=== PATIENT | male | born 1985 | race Caucasian/White ===

== ENCOUNTER 2023-06-19 20:10 | Emergency (ER) | payer OTHER ==
[2023-06-19 20:35] VITALS: TEMP 97.8
--- NOTE | 2023-06-19 20:38 | ED ---
General Adult HPI - General Chief complaint: Upper Respiratory Infection Stated complaint: Cough,vomiting, SOB Time Seen by Provider: 06/19/23 20:20 Source: patient, RN notes reviewed Mode of arrival: ambulatory Limitations: no limitations - History of Present Illness Initial comments: This is a 37-year-old male with history of asthma presents to the ED with chief complaint of cough, fatigue, and fevers over the past week. Patient states that his cough at times is so severe it results in posttussive emesis. Endorses dyspnea on exertion over this time. Patient states that he does not have a thermometer at home but reports feelings of hot/cold flashes. He also states that he has been using his rescue inhaler, albuterol, more frequently during thi s past week. Patient denies any steroid use or inhaled corticosteroid use. States he has been using cold medication. Denies chest pain or pressure, palpitations, abdominal pain. States he has taken multiple at home covid tests which were negative. - Related Data Home Medications Medication Instructions Recorded Confirmed Enalapril [Vasotec] 20 mg PO BID 04/23/14 04/23/14 metFORMIN HCL [Glucophage] 1,000 mg PO BID 04/23/14 04/23/14 Previous Rx's Medication Instructions Recorded Acetaminophen-Codeine 300-30mg 1 each PO Q4H PRN #20 tablet 04/23/14 [Tylenol w/codeine #3] Cyclobenzaprine [Flexeril] 10 mg PO TID #20 tablet 04/23/14 Naproxen [Naprosyn] 500 mg PO Q12HR #24 tab 04/23/14 Benzonatate [Tessalon Perles] 100 mg PO TID PRN #15 capsule 06/19/23 metFORMIN HCL 500 mg PO BID 21 Days #42 tablet 06/19/23 predniSONE 50 mg PO DAILY #5 tab 06/19/23 Allergies Allergy/AdvReac Type Severity Reaction Status Date / Time No Known Allergies Allergy Verified 07/16/21 04:12 Review of Systems ROS Statement: Those systems with pertinent positive or pertinent negative responses have been documented in the HPI. ROS Other: All systems not noted in ROS Statement are negative. Past Medical History Past Medical History: Diabetes Mellitus, Hypertension Additional Past Medical History / Comment(s): back pain, History of Any Multi-Drug Resistant Organisms: None Reported Additional Past Surgical History / Comment(s): skin graft Past Psychological History: Bipolar, Depression Smoking Status: Current every day smoker, Vaper Past Alcohol Use History: None Reported Past Drug Use History: Marijuana General Exam Limitations: no limitations General appearance: alert, in no apparent distress Head exam: Present: atraumatic, normocephalic, normal inspection Eye exam: Present: normal appearance, PERRL, EOMI. Absent: scleral icterus, conjunctival injection, periorbital swelling ENT exam: Present: normal exam, mucous membranes moist Neck exam: Present: normal inspection. Absent: tenderness, meningismus, lymphadenopathy Respiratory exam: Present: wheezes, rales (over the left inferior lung base), decreased breath sounds, prolonged expiratory. Absent: normal lung sounds bilaterally, chest wall tenderness, accessory muscle use Cardiovascular Exam: Present: regular rate, normal rhythm, normal heart sounds. Absent: systolic murmur, diastolic murmur, rubs, gallop, clicks GI/Abdominal exam: Present: soft, normal bowel sounds. Absent: distended, tenderness, guarding, rebound, rigid Extremities exam: Present: normal inspection, full ROM, normal capillary refill. Absent: tenderness, pedal edema, joint swelling, calf tenderness Back exam: Present: normal inspection Neurological exam: Present: alert, oriented X3, CN II-XII intact Psychiatric exam: Present: normal affect, normal mood Skin exam: Present: warm, dry, intact, normal color. Absent: rash Course Vital Signs 06/19/23 06/19/23 06/19/23 20:30 21:07 21:17 Temperature 97.8 F Pulse Rate 93 90 89 Respiratory 18 Rate Blood Pressure 153/96 O2 Sat by Pulse 95 Oximetry Medical Decision Making - Medical Decision Making Was pt. sent in by a medical professional or institution (, PA, PBX INSTALLER, urgent care, hospital, or alf...) When possible be specific @ -No Did you speak to anyone other than the patient for history (EMS, parent, family, police, friend...)? What history was obtained from this source @ -No Did you review nursing and triage notes (agree or disagree)? Why? @ -I reviewed and agree with nursing and triage notes Were old charts reviewed (outside hosp., previous admission, EMS record, old EKG, old radiological studies, urgent care reports/EKG's, alf records)? Report findings @ -No old charts were reviewed Differential Diagnosis (chest pain, altered mental status, abdominal pain women, abdominal pain men, vaginal bleeding, weakness, fever, dyspnea, syncope, headache, dizziness, GI bleed, back pain, seizure, CVA, palpatations, mental health, musculoskeletal)? @ -COVID 19, RSV, influenza, pneumonia, acute bronchitis, URI, this list is not all inclusive EKG interpreted by me (3pts min.). @ -[None X-rays interpreted by me (1pt min.). @ -Chest x-ray with no acute cardiopulmonary process CT interpreted by me (1pt min.). @ -None done U/S interpreted by me (1pt. min.). @ -None done What testing was considered but not performed or refused? (CT, X-rays, U/S, labs)? Why? @ -None What meds were considered but not given or refused? Why? @ -None Did you discuss the management of the patient with other professionals (professionals i.e. , PA, PBX INSTALLER, lab, RT, psych nurse, hospital social worker, conche operator, teacher, interface control officer, caseworker intake)? Give summary @ -No Was smoking cessation discussed for >3mins.? @ -No Was critical care preformed (if so, how long)? @ -No Were there social determinants of health that impacted care today? How? (Homelessness, low income, unemployed, alcoholism, drug addiction, transportation, low edu. Level, literacy, decrease access to med. care, senior care, rehab)? @ -No Was there de-escalation of care discussed even if they declined (Discuss DNR or withdrawal of care, Hospice)? DNR status @ -No What co-morbidities impacted this encounter? (DM, HTN, Smoking, COPD, CAD, Cancer, CVA, ARF, Chemo, Hep., AIDS, mental health diagnosis, sleep apnea, morbid obesity)? @ -smoking, DM Was patient admitted / discharged? Hospital course, mention meds given and route, prescriptions, significant lab abnormalities, going to OR and other pertinent info. @ -37-year-old male with complaint of cough associated with posttussive emesis, fatigue, body aches. On physical exam patient was noted to have decreased bilateral lung sounds with expiratory wheezing and rales. Cepheid ordered ad dition to chest x-ray. Patient given shot of Solu-Medrol in addition to breathing treatment. On reevaluation patient states that his breathing has improved after breathing treatment, but still does not feel 100%. Patient negative for COVID, flu, RSV, chest x-ray with no acute process. At this time patient's symptoms are likely secondary to acute asthma exacerbation. Patient will be discharged home on chronic course of steroids in addition to as needed benzonatate for cough. Patient is requesting refill on metformin due to primary care physician. Pain service. Patient states that he has been on metformin 10 years low-dose 500 mg 2 times a day with his most recent A1c around 6.1. Patient will be discharged home with 3-week supply of metformin as he was able to find a new primary care physician. Discussed with Dr. Pickering Undiagnosed new problem with uncertain prognosis? @ -No Drug Therapy requiring intensive monitoring for toxicity (Heparin, Nitro, Insulin, Cardizem)? @ -No Were any procedures done? @ -No Diagnosis/symptom? @ -cough, post tussive emesis, asthma exacerbation Acute, or Chronic, or Acute on Chronic? @ -acute Uncomplicated (without systemic symptoms) or Complicated (systemic symptoms)? @ -complicated Side effects of treatment? @ -No Exacerbation, Progression, or Severe Exacerbation? @ -exacerbation Poses a threat to life or bodily function? How? (Chest pain, USA, NM, pneumonia, PE, COPD, DKA, ARF, appy, cholecystitis, CVA, Diverticulitis, Homicidal, Suicidal, threat to staff... and all critical care pts) @ -No - Lab Data Lab Results 06/19/23 Range/Units 20:30 Influenza Type A (PCR) Not Detected (Not Detectd) Influenza Type B (PCR) Not Detected (Not Detectd) RSV (PCR) Not Detected (Not Detectd) SARS-CoV-2 (PCR) Not Detected (Not Detectd) Disposition Clinical Impression: Asthma exacerbation, Dry cough, Post-tussive emesis Narrative: Please return to the Emergency Department if symptoms worsen or any other concerns. Contact insurance agency to determine which providers are within network to establish care with a new primary care physician Disposition: HOME SELF-CARE Condition: Good Prescriptions: metFORMIN HCL 500 mg PO BID 21 Days #42 tablet predniSONE 50 mg PO DAILY #5 tab Benzonatate [Tessalon Perles] 100 mg PO TID PRN #15 capsule PRN Reason: Cough Is patient prescribed a controlled substance at d/c from ED?: No Referrals: None,Stated [Primary Care Provider] - 1-2 days Time of Disposition: 23:22
[2023-06-19] MEDS: methylPREDNISolone SOD SUCCI 125 MG/2 ML VIAL IM ONE (21:00)
[2023-06-19] MEDS: IPRATROPIUM-ALBUTEROL 3 ML NEB INHALATION STA (21:05)
--- NOTE | 2023-06-19 23:10 | XR ---
EXAMINATION TYPE: XR chest 2V DATE OF EXAM: 06/19/2023 8:54 PM CLINICAL INDICATION:Male, 37 years old with history of cough, wheezing; [facility] COMPARISON: None TECHNIQUE: XR chest 2V. Frontal and lateral views of the chest.. FINDINGS: Lines/Tubes/Devices: No indwelling lines are seen. Heart/mediastinum: Heart size is normal. Mediastinum appears normal. Pulmonary vascularity: Not increased, Lungs/Pleura: There is no evidence of pleural effusion, focal consolidation, or pneumothorax. Musculoskeletal: No acute osseous abnormality demonstrated in the limits of the exam. Other findings: None. IMPRESSION: No acute cardiopulmonary abnormality.
[2023-06-19 23:33] VITALS: BP 130/97; PULSE 87; RESP 17
== END 2023-06-19 23:32 | disposition home or self-care (01) ==
LOC: EC 20:10
DX: J45.901 Unspecified asthma with (acute) exacerbation (principal); E89.89 Other postprocedural endocrine and metabolic complications and disorders
CPT/HCPCS: 94640; 87636; 71046; 99285; 96372; J2930

== ENCOUNTER 2024-02-19 09:36 | Emergency (ER) | payer OTHER ==
[2024-02-19 09:44] VITALS: RESP 18
[2024-02-19] MEDS: ACETAMINOPHEN TAB 500 MG TAB PO STA (10:06)
[2024-02-19] MEDS: DEXAMETHASONE SOD PHOSPHATE 10 MG/ML 1 ML VIAL IM STA (10:07)
[2024-02-19] MEDS: KETOROLAC 15 MG/ML 1 ML VIAL IM STA (10:07)
--- NOTE | 2024-02-19 10:12 | ED ---
Extremity Problem HPI - General Chief complaint: Extremity Injury, Lower Stated complaint: Hip pain Time Seen by Provider: 02/19/24 09:45 Source: patient, RN notes reviewed Mode of arrival: ambulatory Limitations: no limitations - History of Present Illness Initial comments: This is a 38-year-old male who presents to the emergency department for left hip pain. States that it started a week ago. Denies any injuries. States that he is on his feet a lot at work and pain is worse with movement and ambulation. It is occasionally present at rest, but not always. He has tried taking ibuprofen on some of the days, which he states is somewhat beneficial. MD Complaint: extremity pain - Related Data Home Medications Medication Instructions Recorded Confirmed Enalapril [Vasotec] 20 mg PO BID 04/23/14 04/23/14 metFORMIN HCL [Glucophage] 1,000 mg PO BID 04/23/14 04/23/14 Previous Rx's Medication Instructions Recorded Acetaminophen-Codeine 300-30mg 1 each PO Q4H PRN #20 tablet 04/23/14 [Tylenol w/codeine #3] Cyclobenzaprine [Flexeril] 10 mg PO TID #20 tablet 04/23/14 Naproxen [Naprosyn] 500 mg PO Q12HR #24 tab 04/23/14 Benzonatate [Tessalon Perles] 100 mg PO TID PRN #15 capsule 06/19/23 metFORMIN HCL 500 mg PO BID 21 Days #42 tablet 06/19/23 predniSONE 50 mg PO DAILY #5 tab 06/19/23 Meloxicam [Mobic] 15 mg PO DAILY PRN #30 tab 02/19/24 Allergies Allergy/AdvReac Type Severity Reaction Status Date / Time No Known Allergies Allergy Verified 02/19/24 09:44 Review of Systems ROS Statement: Those systems with pertinent positive or pertinent negative responses have been documented in the HPI. ROS Other: All systems not noted in ROS Statement are negative. Past Medical History Past Medical History: Diabetes Mellitus, Hypertension Additional Past Medical History / Comment(s): back pain, History of Any Multi-Drug Resistant Organisms: None Reported Additional Past Surgical History / Comment(s): skin graft Past Psychological History: Bipolar, Depression Smoking Status: Current every day smoker, Vaper Past Alcohol Use History: None Reported Past Drug Use History: Marijuana General Exam Limitations: no limitations General appearance: alert, in no apparent distress Head exam: Present: atraumatic, normocephalic, normal inspection Respiratory exam: Present: normal lung sounds bilaterally. Absent: respiratory distress, wheezes, rales, rhonchi, stridor Cardiovascular Exam: Present: regular rate, normal rhythm, normal heart sounds. Absent: systolic murmur, diastolic murmur, rubs, gallop, clicks Extremities exam: Present: other (No tenderness, swelling, or erythema to the left hip. Full range of motion, however this does induce pain. 2+ DP and PT pulses) Neurological exam: Present: alert, oriented X3, CN II-XII intact Psychiatric exam: Present: normal affect, normal mood Skin exam: Present: warm, dry, intact, normal color. Absent: rash Course Vital Signs 02/19/24 02/19/24 09:42 11:19 Temperature 97.6 F 97.7 F Pulse Rate 80 82 Respiratory 18 18 Rate Blood Pressure 143/92 137/79 O2 Sat by Pulse 97 97 Oximetry Medical Decision Making - Medical Decision Making This is a 38 year old male who presents to the emergency department for left hip pain. Was pt. sent in by a medical professional or institution? @ -No Did you speak to anyone other than the patient for history? @ -No Did you review nursing and triage notes? @ -Yes, and I agree, it is accurate with regards to the patient's symptoms. Were old charts reviewed? @ -No Differential Diagnosis? @ -Differential Musculoskeletal Muscular strain, contusion, ligament sprain, fracture, arthritis, septic arthritis, bursitis, cellulitis, muscle spasm, nerve compression, DVT, arterial occlusion, herpes zoster, electrolyte abnormality, tumor.... This is not meant to be in all inclusive list EKG interpreted by me (3pts min.)? @ -Not obtained X-rays interpreted by me (1pt min.)? @ -X-ray of the left hip obtained. My interpretation identifies no acute fractures. CT interpreted by me (1pt min.)? @ -Not obtained U/S interpreted by me (1pt. min.)? @ -Not obtained What testing was considered but not performed? (CT, X-rays, U/S, labs)? Why? @ -None What meds were considered but not given? Why? @ -None Did you discuss the management of the patient with other professionals? @ -No Did you reconcile home meds? @ -No Was smoking cessation discussed for >3mins.? @ -No Was critical care preformed (if so, how long)? @ -No Were there social determinants of health that impacted care today? How? (Homelessness, low income, unemployed, alcoholism, drug addiction, transportat ion, low edu. Level, literacy, decrease access to med. care, fci, rehab)? @ -No Was there de-escalation of care discussed even if they declined? (Discuss DNR or withdrawal of care, Hospice)? @ -No What co-morbidities impacted this encounter? (DM, HTN, Smoking, COPD, CAD, Cancer, CVA, Hep., AIDS, mental health diagnosis, sleep apnea, morbid obesity)? @ -None Was patient admitted / discharged? @ -Discharged. X-ray of the left hip obtained revealing no acute process. Physical examination unremarkable. Symptoms may be related to something like a bursitis. Pain was treated in the emergency department. Prescription for meloxicam provided. Advised taking this with Tylenol for additional relief. Patient discharged home in stable condition and advised to have close follow-up with his PCP for reevaluation. Case discussed with ED attending Dr. Card. Return precautions reviewed in depth, the patient is instructed to return to the emergency department with any new, worsening, or concerning symptoms. Patient verbalized understanding. Undiagnosed new problem with uncertain prognosis? @ -None Drug Therapy requiring intensive monitoring for toxicity (Heparin, Nitro, Insulin, Cardizem)? @ -None Were any procedures done? @ -None Diagnosis/symptom? @ -Left hip pain Acute, or Chronic, or Acute on Chronic? @ -Acute Uncomplicated (without systemic symptoms) or Complicated (systemic symptoms)? @ -Uncomplicated Side effects of treatment? @ -None Exacerbation, Progression, or Severe Exacerbation] @ -Not applicable Poses a threat to life or bodily function? @ -No - Radiology Data Radiology results: report reviewed, image reviewed Disposition Clinical Impression: Left hip pain Disposition: HOME SELF-CARE Instructions (If sedation given, give patient instructions): Hip Bursitis (ED), Hip Pain (ED) Additional Instructions: Return to the emergency department with any new, worsening, or concerning sympt oms. Begin taking the Mobic once daily. If you choose to take this, do not take any other anti-inflammatories such as ibuprofen, take one or the other. Take it with Tylenol for additional relief. Follow up with your primary care provider in 1-2 days. Prescriptions: Meloxicam [Mobic] 15 mg PO DAILY PRN #30 tab PRN Reason: Pain Is patient prescribed a controlled substance at d/c from ED?: No Referrals: None,Stated [Primary Care Provider] - 1-2 days Time of Disposition: 10:49
--- NOTE | 2024-02-19 10:28 | XR ---
EXAMINATION TYPE: XR Hip Complete LT DATE OF EXAM: 02/19/2024 10:21 AM COMPARISON: None. CLINICAL INDICATION: Male, 38 years old with history of Pain, TECHNIQUE: 2 view(s) obtained. FINDINGS: Femoral head articulates with the acetabulum. Joint space is preserved. No acute fracture or dislocat ion evident. Follow-up exams can be performed as clinically indicated IMPRESSION: 1. No acute osseous abnormalities left hip. [facility], , 02/19/2024 10:26 AM
[2024-02-19 11:32] VITALS: BP 137/79; PULSE 82; TEMP 97.7
== END 2024-02-19 11:19 | disposition home or self-care (01) ==
LOC: EC 09:36
DX: M25.552 Pain in left hip (principal); F17.290 Nicotine dependence, other tobacco product, uncomplicated
CPT/HCPCS: 73502; 99283; 96372 ×2; J1100; J1885

== ENCOUNTER 2024-04-08 14:13 | Emergency (ER) | payer OTHER ==
[2024-04-08 14:23] VITALS: TEMP 97.7
--- NOTE | 2024-04-08 15:02 | ED ---
URI HPI - General Chief Complaint: Upper Respiratory Infection Stated Complaint: cough,fatigue Time Seen by Provider: 04/08/24 14:30 Source: patient, RN notes reviewed Mode of arrival: ambulatory Limitations: no limitations - History of Present Illness Initial Comments: This is a 38-year-old male presenting to the emergency department for complaint of right upper respiratory infection symptoms over the past week and a half. He states he has been experiencing cough, congestion, body aches, difficulty in breathing, fevers and chills. Patient is requesting a work note and "something to treat my symptoms". - Related Data Home Medications Medication Instructions Recorded Confirmed Enalapril [Vasotec] 20 mg PO BID 04/23/14 04/23/14 metFORMIN HCL [Glucophage] 1,000 mg PO BID 04/23/14 04/23/14 Previous Rx's Medication Instructions Recorded Acetaminophen-Codeine 300-30mg 1 each PO Q4H PRN #20 tablet 04/23/14 [Tylenol w/codeine #3] Cyclobenzaprine [Flexeril] 10 mg PO TID #20 tablet 04/23/14 Naproxen [Naprosyn] 500 mg PO Q12HR #24 tab 04/23/14 Benzonatate [Tessalon Perles] 100 mg PO TID PRN #15 capsule 06/19/23 metFORMIN HCL 500 mg PO BID 21 Days #42 tablet 06/19/23 predniSONE 50 mg PO DAILY #5 tab 06/19/23 Meloxicam [Mobic] 15 mg PO DAILY PRN #30 tab 02/19/24 Allergies Allergy/AdvReac Type Severity Reaction Status Date / Time No Known Allergies Allergy Verified 04/08/24 14:23 Review of Systems ROS Statement: Those systems with pertinent positive or pertinent negative responses have been documented in the HPI. ROS Other: All systems not noted in ROS Statement are negative. Past Medical History Past Medical History: Diabetes Mellitus, Hypertension Additional Past Medical History / Comment(s): back pain, History of Any Multi-Drug Resistant Organisms: None Reported Additional Past Surgical History / Comment(s): skin graft Past Psychological History: Bipolar, Depression Smoking Status: Current every day smoker, Vaper Past Alcohol Use History: None Reported Past Drug Use History: Marijuana General Exam Limitations: no limitations General appearance: alert, in no apparent distress ENT exam: Present: normal exam, mucous membranes moist Respiratory exam: Present: normal lung sounds bilaterally. Absent: respiratory distress, wheezes, rales, rhonchi, stridor Cardiovascular Exam: Present: regular rate, normal rhythm, normal heart sounds. Absent: systolic murmur, diastolic murmur, rubs, gallop, clicks GI/Abdominal exam: Present: soft, normal bowel sounds. Absent: distended, tenderness, guarding, rebound, rigid Extremities exam: Present: normal inspection, full ROM, normal capillary refill. Absent: tenderness, pedal edema, joint swelling, calf tenderness Course Vital Signs 04/08/24 04/08/24 14:20 15:43 Temperature 97.7 F Pulse Rate 121 H 102 H Respiratory 22 20 Rate Blood Pressure 143/98 124/60 O2 Sat by Pulse 94 L 99 Oximetry Medical Decision Making - Medical Decision Making Was pt. sent in by a medical professional or institution (SARY Murphy, PRECISION DEVICES INSPECTOR/TESTER, urgent care, hospital, or retirement...) When possible be specific @ -No Did you speak to anyone other than the patient for history (EMS, parent, family, police, friend...)? What history was obtained from this source @ -No Did you review nursing and triage notes (agree or disagree)? Why? @ -I reviewed and agree with nursing and triage notes Were old charts reviewed (outside hosp., previous admission, EMS record, old EKG, old radiological studies, urgent care reports/EKG's, retirement records)? Report findings @ -No old charts were reviewed Differential Diagnosis (chest pain, altered mental status, abdominal pain women, abdominal pain men, vaginal bleeding, weakness, fever, dyspnea, syncope, headache, dizziness, GI bleed, back pain, seizure, CVA, palpatations, mental health, musculoskeletal)? @ -COVID 19, RSV, influenza, pneumonia, acute bronchitis, URI, this list is not all inclusive EKG interpreted by me (3pts min.). @ -None X-rays interpreted by me (1pt min.). @ -Chest x-ray reveals central. Bronchial cuffing possibly reflecting bronchitis or asthma CT interpreted by me (1pt min.). @ -None done U/S interpreted by me (1pt. min.). @ -None done What testing was considered but not performed or refused? (CT, X-rays, U/S, labs)? Why? @ -None What meds were considered but not given or refused? Why? @ -None Did you discuss the management of the patient with other professionals (professionals i.e. , PA, PRECISION DEVICES INSPECTOR/TESTER, lab, RT, psych nurse, social media marketing analyst, rounder hand, teacher, commercial loan officer, catalytic case operator)? Give summary @ -No Was smoking cessation discussed for >3mins.? @ -No Was critical care preformed (if so, how long)? @ -No Were there social determinants of health that impacted care today? How? (Homelessness, low income, unemployed, alcoholism, drug addiction, transportation, low edu. Level, literacy, decrease access to med. care, [facility], rehab)? @ -No Was there de-escalation of care discussed even if they declined (Discuss DNR or withdrawal of care, Hospice)? DNR status @ -No What co-morbidities impacted this encounter? (DM, HTN, Smoking, COPD, CAD, Cancer, CVA, ARF, Chemo, Hep., AIDS, mental health diagnosis, sleep apnea, morbid obesity)? @ -None Was patient admitted / discharged? Hospital course, mention meds given and route, prescriptions, significant lab abnormalities, going to OR and other pertinent info. @ -Discharge. 38-year-old male presenting with URI symptoms. Vitals are stable. Patient is tested positive for RSV. Chest x-ray possible bronchitis. His patient's is positive for viral infection medications are not send at this time and supportive treatment has been discussed. Case discussed with Dr. Pickering Undiagnosed new problem with uncertain prognosis? @ -No Drug Therapy requiring intensive monitoring for toxicity (Heparin, Nitro, Insulin, Cardizem)? @ -No Were any procedures done? @ -No Diagnosis/symptom? @ -RSV Acute, or Chronic, or Acute on Chronic? @ -acute Uncomplicated (without systemic symptoms) or Complicated (systemic symptoms)? @ -uncomplicated Side effects of treatment? @ -No Exacerbation, Progression, or Severe Exacerbation? @ -No Poses a threat to life or bodily function? How? (Chest pain, [place], [place], pneumonia, PE, COPD, DKA, ARF, appy, cholecystitis, CVA, Diverticulitis, Homicidal, Suicidal, threat to staff... and all critical care pts) @ -No - Lab Data Lab Results 01/28/25 Range/Units 14:24 Influenza Type A (PCR) Not Detected (Not Detectd) Influenza Type B (PCR) Not Detected (Not Detectd) RSV (PCR) Detected A (Not Detectd) SARS-CoV-2 (PCR) Not Detected (Not Detectd) Disposition Clinical Impression: RSV (acute bronchiolitis due to respiratory syncytial virus) Disposition: HOME SELF-CARE Condition: Good Instructions (If sedation given, give patient instructions): Respiratory Syncytial Virus (ED) Additional Instructions: Please return to the Emergency Department if symptoms worsen or any other concerns. Is patient prescribed a controlled substance at d/c from ED?: No Referrals: None,Stated [Primary Care Provider] - 1-2 days Time of Disposition: 15:27
--- NOTE | 2024-04-08 15:05 | XR ---
EXAMINATION TYPE: XR chest 2V DATE OF EXAM: 04/08/2024 2:44 PM COMPARISON: 06/19/2023 CLINICAL INDICATION: Male, 38 years old with history of Cough, , TECHNIQUE: PA and lateral views FINDINGS: The cardiomediastinal silhouette, aorta, and pulmonary vasculature are within normal limits. Mild estefania tral peribronchial cuffing. Otherwise, lungs and pleural spaces are clear. IMPRESSION: Some central peribronchial cuffing could reflect bronchitis or asthma. Otherwise, no acute process is seen. [facility], , 04/08/2024 3:02 PM
[2024-04-08 15:12] LABS: Influenza A Not Detected (Not Detectd); Influenza B Not Detected (Not Detectd); RSV Detected (Not Detectd)
[2024-04-08 15:44] VITALS: BP 124/60; PULSE 102; RESP 20
== END 2024-04-08 15:44 | disposition home or self-care (01) ==
LOC: EC 14:13
DX: J21.0 Acute bronchiolitis due to respiratory syncytial virus (principal); F17.290 Nicotine dependence, other tobacco product, uncomplicated
CPT/HCPCS: 71046; 87636; 99283